=== PATIENT | female | born 1955 | race Two or more races ===

== ENCOUNTER 2018-09-06 20:33 | Emergency (ER) | payer OTHER ==
[~2018-09-06] VITALS: Ht 157.5 cm; Wt 53.1 kg
[2018-09-06] MEDS ORDERED: SYNTHROID50 MCG (20:42)
[2018-09-06] MEDS ORDERED: CRESTOR5 MG (20:44)
== END 2018-09-06 21:49 | disposition home or self-care (01) ==
LOC: ER 20:33
DX: H57.11 Ocular pain, right eye (principal); H18.821 Corneal disorder due to contact lens, right eye